=== PATIENT | female | born 1960 | race Caucasian/White ===

== ENCOUNTER 2019-06-26 16:22 | Inpatient (IN) | payer OTHER ==
[~2019-06-26] VITALS: Ht 160 cm; Wt 102.5 kg
[2019-06-26 16:29] VITALS: BP 138/79
[2019-06-26] MEDS ORDERED: TUMS SMOOTHIES300 MG PO (16:35)
[2019-06-26] MEDS ORDERED: PROBIOTIC1 EAC7 PO (16:35)
[2019-06-26] MEDS ORDERED: FOLIC ACID1 MG PO ×2 (16:35→21:18)
[2019-06-26] MEDS ORDERED: MELATONIN3 M1 PO (16:36)
[2019-06-26] MEDS ORDERED: KEPPRA XR500 MG PO (16:36)
[2019-06-26] MEDS ORDERED: MIRALAX119 GM PO (16:36)
[2019-06-26] MEDS ORDERED: ISO D3 2,000 U1 EACH PO (16:37)
[2019-06-26] MEDS ORDERED: TRAZODONE HCL100 MG PO (16:37)
[2019-06-26] MEDS ORDERED: SERTRALINE HCL100 MG PO (16:37)
[2019-06-26 16:56] LABS: URINE BILIRUBIN NEGATIVE (Negative); URINE BLOOD TRACE (Negative); URINE CLARITY CLEAR; URINE COLOR YELLOW; URINE GLUCOSE-RANDOM* NEGATIVE (Negative); URINE KETONES NEGATIVE (Negative); URINE LEUKOCYTES-REFLEX NEGATIVE (Negative); URINE NITRITE-REFLEX NEGATIVE (Negative); URINE PROTEIN (DIPSTICK) 2+ (Negative); URINE SPECIFIC GRAVITY >= 1.030 (1.005-1.035)
[2019-06-26 17:01] LABS: SQUAMOUS >10 Many /LPF (0-3); URINE RBC None Seen /HPF (0-2); URINE WBC-REFLEX 0-5 Rare /HPF (0-5)
[2019-06-26 17:02] LABS: BACTERIA-REFLEX None Seen /HPF (None Seen); CRYSTALS None Seen /LPF (None Seen); HYALINE CASTS 0-3 Few /LPF (None Seen)
[2019-06-26 17:47] LABS: CALCIUM 8.4 mg/dL (8.5-10.1); CREATININE 0.8 mg/dL (0.6-1.0); POTASSIUM 4.7 mmol/L (3.5-5.1)
[2019-06-26 17:53] LABS: ALBUMIN 3.5 g/dL (3.4-5.0); TOTAL PROTEIN 6.8 g/dL (6.4-8.2)
[2019-06-26 18:00] LABS: ABSOLUTE NEUTROPHILS 3.5 thou/uL (1.4-8.2); BASOPHILS 1.2 % (0.0-2.0); EOSINOPHILS 2.3 % (0.0-3.0); HEMATOCRIT 39.8 % (37.0-47.0); HEMOGLOBIN 13.3 gm/dL (12.0-15.0); LYMPHOCYTES 23.5 % (24.0-44.0); MCH 30.6 pg (26.0-34.0); MCHC 33.3 g/dL (28.0-37.0); MCV 91.9 fL (80.0-100.0); MONOCYTES 9.7 % (1.0-8.0); PLATELET COUNT 184 thou/uL (150-400); POLYS 63.3 % (36.0-66.0); RBC 4.33 mil/uL (4.20-5.00); WBC 5.6 thou/uL (4.0-11.0)
[2019-06-26 18:24] LABS: TOTAL BILIRUBIN 0.4 mg/dL (<0.1-1.0)
--- NOTE | 2019-06-26 19:24 | NUR ---
Pt reports she wants these 4 numbers in case her phone dies: Atiya: [phone] Landry: [phone] Beba: [phone] Kay: [phone]
[2019-06-26 19:31] VITALS: BP 99/56
[2019-06-26 19:43] VITALS: BP 94/64
[2019-06-26 20:15] VITALS: BP 108/76
[2019-06-26] MEDS ORDERED: VITAMIN E1000 UNIT PO (21:09)
[2019-06-26] MEDS ORDERED: VIMPAT200 MG PO (21:11)
[2019-06-26] MEDS ORDERED: IBU800 MG PO (21:16)
[2019-06-26] MEDS ORDERED: MELATONIN3 M2 PO (21:21)
[2019-06-26] MEDS ORDERED: PROTONIX40 M2 PO (21:26)
[2019-06-27 00:45] VITALS: BP 105/75
[2019-06-27 04:27] LABS: HEMATOCRIT 37.9 % (37.0-47.0); HEMOGLOBIN 12.5 gm/dL (12.0-15.0); MCH 30.5 pg (26.0-34.0); MCHC 32.9 g/dL (28.0-37.0); MCV 92.8 fL (80.0-100.0); RBC 4.08 mil/uL (4.20-5.00); RDW 13.9 % (10.5-14.5)
[2019-06-27 04:44] LABS: CALCIUM 7.4 mg/dL (8.5-10.1); CREATININE 0.9 mg/dL (0.6-1.0); POTASSIUM 3.9 mmol/L (3.5-5.1)
[2019-06-27 04:45] VITALS: BP 114/81
[2019-06-27 07:20] VITALS: BP 94/44
--- NOTE | 2019-06-27 09:07 | EKG ---
[facility] [address] [place] [address] ELECTROCARDIOGRAM REPORT Name: ANGELA SIMON Room #: 211-P ADM IN M.R.#: [id number] Admission: 06/26/19 Attend Phys: Dianne Ferguson Discharge: Date of : 64 Report #: [id number] THIS REPORT FOR: cc: Nola Frank MD, Ghazal A. MD Lundgren, Craig H. MD [facility] ~ THIS REPORT FOR: //name// [facility] ED Test Date: 2019-06-26 Test Time: 17:00:02 Pat Name: ANGELA SIMON Department: Room: [facility] Gender: F Methods And Procedures Analyst: ELBA : 1960 Requested By: Damion Mckeon Order Number: [id number] MD: Paul Sam Measurements Intervals [place] Rate: 161 P: NM: QRS: 74 QRSD: 88 T: 38 QT: 308 QTc: 504 Interpretive Statements Atrial fibrillation Borderline prolonged QT interval No previous ECG available for comparison Electronically Signed On 06-27-2019 9:05:12 CDT by Paul Sam [email or web address] <ELECTRONICALLY SIGNED> By: Paul Sam MD, FAC 06/27/19 0905 1700 99 Paul Sam MD, [facility] /EPI
[2019-06-27 10:54] VITALS: BP 104/65
[2019-06-27 11:10] LABS: CHOLESTEROL 97 mg/dL (<200); HDL CHOLESTEROL 40 mg/dL (>40); LDL CHOLESTEROL 48 mg/dL (<100); TC:HDL 2.4 Ratio (Not establshd); TRIGLYCERIDE 48 mg/dL (<150); VLDL 10 mg/dL (<40)
--- NOTE | 2019-06-27 12:07 | 2DMMODE ---
[facility] [place] [address] 2 D/M-MODE ECHOCARDIOGRAM Name: ANGELA SIMON Room #: 211-P ADM IN M.R.#: [id number] Admission: 06/26/19 Attend Phys: Dianne Ferguson Discharge: Date of : 64 Report #: [id number] THIS REPORT FOR: cc: Nola Frank MD, Ghazal A. MD Park, Jin S. MD ~ APPROVED REPORT Study performed: 06/27/2019 10:22:26 EXAM: Comprehensive 2D, Doppler, and color-flow Echocardiogram Patient Location: Bedside Room #: 211 Status: routine BSA: 2.01 HR: 110 bpm BP: 94/44 mmHg Rhythm: Atrial Fibrillation Other Information Study Quality: Fair Indications Atrial Fibrillation 2D Dimensions RVDd: 38.42 mm IVSd: 8.62 (7-11mm) LVOT Diam: 18.52 (18-24mm) LVDd: 53.57 mm PWd: 8.94 (7-11mm) Ascending Ao: 25.12 (22-36mm) LVDs: 45.72 (25-40mm) Aortic Root: 25.46 mm IVC: 25.00 mm Volumes Left Atrial Volume (Systole) Single Plane 4CH: 41.12 mL Single Plane 2CH: 51.70 mL LA ESV Index: 26.00 mL/m2 Aortic Valve AoV Peak Jeromy.: 1.29 m/s AO Peak Gr.: 6.68 mmHg LVOT Max P.69 mmHg LVOT Max V: 0.65 m/s TEODORO Vmax: 1.35 cm2 [facility] [address] [place] [address] 2 D/M-MODE ECHOCARDIOGRAM Name: ANGELA SIMON Room #: 211-P [facility] IN [facility]#: [id number] Admission: 06/26/19 Attend Phys: Dianne Peña Discharge: Date of : 64 Report #: [id number] Pulmonary Valve PV Peak Jeromy.: 0.78 m/s PV Peak Gr.: 2.44 mmHg Tricuspid Valve TR Peak Jeromy.: 2.43 m/s TR Peak Gr.: 23.56 mmHg PA Pressure: 39.00 mmHg Left Ventricle Left ventricle is at the upper limits of normal. There is global hypokinesis of the left ventricle. There is normal left ventricular wall thickness. Left ventricular ejection fraction is moderate to severely decreased. LVEF is 30-35%. This study is not technically sufficient to allow evaluation of the LV diastolic function due to atrial fibrillation. Right Ventricle Right ventricle is not well visualized. Atria Left atrium is at the upper limits of normal. Right atrium is dilated. Aortic Valve The aortic valve is not well visualized. No aortic regurgitation is present. There is no aortic valvular stenosis. Mitral Valve The mitral valve is normal in structure. Mild mitral regurgitation. No evidence of mitral valve stenosis. Tricuspid Valve The tricuspid valve is normal in structure. There is mild to moderate tricuspid regurgitation. Estimated PAP 39 mmHg. There is mild pulmonary hypertension. Pulmonic Valve The pulmonary valve is normal in structure. There is no pulmonic valvular regurgitation. Great Vessels The aortic root is normal in size. The inferior vena cava is dilated with no inspiratory collapse. Pericardium There is no pericardial effusion. [facility] [address] [place] [address] 2 D/M-MODE ECHOCARDIOGRAM Name: ANGELA SIMON Room #: 211-P [facility] IN .R.#: [id number] Admission: 06/26/19 Attend Phys: Dianne Peña Discharge: Date of : 64 Report #: [id number] <Conclusion> Technically difficult study Left ventricle is at the upper limits of normal. There is normal left ventricular wall thickness. Left ventricular ejection fraction is moderate to severely decreased. LVEF is 30-35%. Right ventricle is not well visualized. Left atrium is at the upper limits of normal. Mild mitral regurgitation. There is mild to moderate tricuspid regurgitation. Estimated PAP 39 mmHg. <ELECTRONICALLY SIGNED> By: Ignacio Oliva MD 06/27/195 04 04 Ignacio Oliva MD /INF
--- NOTE | 2019-06-27 15:32 | NUR ---
Case opened to follow for dc planning. Pt is a&ox3 and able to answer basic questions about herself. She has a hx of Borderline Intellectual Function, Epilepsy,and Depression/Anxiety for which she is disabled. The pt lives in a group residential home and works at the [employer] 4 days week (prior to the Covid stay at home order). She is indep with gait and requires supervision for her adl's. The [facility] manages her medications and meals and f/u appts. Atiya is the engineering group manager and her primary contact [phone]. Atiya indicates that she will be checking in daily and transporting the pt home at [place]. She is not available on Sunday but can have another staff person available is dc ready then. She will need a chart copy sent with the pt along with dc instructions. Any new scripts will need to be called /or faxed to [facility]: [phone] fax [phone]. Atyia reports that the pt got AD/DPOA paperwork from her pcp but they have not completed it. Her next of kin is her brother Jarad Rubio and Atiya has been updated him regularly. Her pcp is Dr. Landry at [facility] in [place], [place] Dr. De Anda sees her for doreen. The pt is currently being treated for acute pancreatitis and afib. She is on a cardizem gtt today and will likely be here a couple of days. Will ask for therapy evals. No dme or HH history. No cm interventions indicated at this time. Nursing updated. Will follow along.
[2019-06-27 15:36] VITALS: BP 119/82
[2019-06-27 19:37] VITALS: BP 121/74
[2019-06-28 04:31] VITALS: BP 118/69
[2019-06-28 05:28] LABS: ALBUMIN 2.9 g/dL (3.4-5.0); CALCIUM 7.2 mg/dL (8.5-10.1); CREATININE 0.6 mg/dL (0.6-1.0); POTASSIUM 3.3 mmol/L (3.5-5.1); TOTAL BILIRUBIN 0.5 mg/dL (<0.1-1.0); TOTAL PROTEIN 6.1 g/dL (6.4-8.2)
[2019-06-28 07:00] VITALS: BP 115/65
--- NOTE | 2019-06-28 08:16 | NUR ---
ASSUME CARE 1900. PT/VITALS STABLE. ANXIETY NOTED AND PT HAD EPISODES OF TEARFULLNESS. INTERMITTENT HEAD ACHE AND ABDO PAIN. AFIB WITH RATE CONTROLLED. CARDIZEM DRIP TO TITRATE WITH HR LESS THAN 100. ASSESSMETN CHARTED. PROGRESSING MODERATELY TO POC. PLAN IS CONTINUE TO MONITOR DYSRHYTHMIA AND CONSULT PSYCH. CONTINUE TREATMENT FOR SEIZURES. WILL CONTINUE TO MONITOR AND FOLLOW WITH POC
[2019-06-28 10:30] VITALS: BP 111/67
--- NOTE | 2019-06-28 10:54 | NUR ---
DR. BRIONES REFERRAL FOR SUPPORT TO PATIENT. tHIS CHAPKORYN INCREASED COMFORT LEVEL OF PATIENT THROUGH LISTENING AND LIFE REVIEW. DETAILS OF VISIT TO BE SENT TO OUTSIDE OF EMR.
[2019-06-28 16:00] VITALS: BP 122/92
--- NOTE | 2019-06-28 16:14 | NUR ---
ASSESSMENT CHARTED. PT ALERT AND ORIENTED. VSS. RECEIVED PRN PAIN MED FOR [place] AND ABD PAIN WITH PARTIAL RELIEF. TOLERATED FULL LIQUID DIET. HAD LARGE BM THIS SHIFT. FALL PRECAUTION IN PLACE. WILL CONTINUE TO MONITOR.
[2019-06-28 19:01] VITALS: BP 115/77
[2019-06-29 04:21] LABS: BASOPHILS 0.6 % (0.0-2.0); EOSINOPHILS 1.7 % (0.0-3.0); HEMATOCRIT 37.6 % (37.0-47.0); HEMOGLOBIN 12.5 gm/dL (12.0-15.0); LYMPHOCYTES 11.8 % (24.0-44.0); MCH 30.7 pg (26.0-34.0); MCHC 33.2 g/dL (28.0-37.0); MCV 92.5 fL (80.0-100.0); MONOCYTES 7.2 % (1.0-8.0); PLATELET COUNT 167 thou/uL (150-400); POLYS 78.7 % (36.0-66.0); RBC 4.07 mil/uL (4.20-5.00); RDW 13.6 % (10.5-14.5); WBC 5.1 thou/uL (4.0-11.0)
[2019-06-29 04:33] LABS: CALCIUM 7.8 mg/dL (8.5-10.1); CREATININE 0.9 mg/dL (0.6-1.0); MAGNESIUM 1.7 mg/dL (1.8-2.4); PHOSPHORUS 2.4 mg/dL (2.5-4.9); TOTAL BILIRUBIN 0.5 mg/dL (<0.1-1.0); TOTAL PROTEIN 6.4 g/dL (6.4-8.2)
[2019-06-29 05:04] VITALS: BP 138/67
[2019-06-29 07:00] VITALS: BP 130/62
--- NOTE | 2019-06-29 07:24 | NUR ---
ASSUMED PT CARE AT 1900, PT ALERT AND ORIENTEDX2, SR ON THE MONITOR, VSS, C/O HEADACHE, PAIN MEDICATION GIVEN, NO FURTHER COMPLAINS, LAYING IN BD, NO DISTRESS NOTED
[2019-06-29 11:20] VITALS: BP 128/57
[2019-06-29 15:10] VITALS: BP 133/83
--- NOTE | 2019-06-29 16:49 | NUR ---
ASSESSMENT CHARTED. PT ALERT AND ORIENTED. VSS. HAD 3 LARGE BM'S THIS SHIFT. NEW ORDERS NOTED. DIET ADVANCED. SR ON TELE. WILL CONTINUE TO MONITOR.
[2019-06-29 20:30] VITALS: BP 139/71
[2019-06-30 04:45] VITALS: BP 148/92
[2019-06-30 08:00] VITALS: BP 124/63
--- NOTE | 2019-06-30 08:14 | NUR ---
pt resting quietly most of the evening in bed, no c/o pain, vss, untill this am pt's hr up to 150's pt states she didn't feel any different, dr notified and order received to restart cardizem gtt, report given to next shift to con't with ppoc.
[2019-06-30 08:50] LABS: BASOPHILS 0.7 % (0.0-2.0); EOSINOPHILS 2.2 % (0.0-3.0); HEMATOCRIT 44.8 % (37.0-47.0); LYMPHOCYTES 12.5 % (24.0-44.0); MCH 30.9 pg (26.0-34.0); MCHC 33.9 g/dL (28.0-37.0); MCV 90.9 fL (80.0-100.0); MONOCYTES 8.5 % (1.0-8.0); PLATELET COUNT 206 thou/uL (150-400); POLYS 76.1 % (36.0-66.0); RBC 4.92 mil/uL (4.20-5.00); RDW 13.5 % (10.5-14.5); WBC 6.6 thou/uL (4.0-11.0)
[2019-06-30 09:27] LABS: ALBUMIN 3.9 g/dL (3.4-5.0); ANION GAP 7 mmol/L (7-16); BUN 7 mg/dL (7-18); CALCIUM 8.8 mg/dL (8.5-10.1); CHLORIDE 100 mmol/L (98-107); CO2 30 mmol/L (21-32); CREATININE 0.9 mg/dL (0.6-1.0); GLUCOSE 111 mg/dL (74-106); LIPASE 78 U/L (73-393); MAGNESIUM 2.2 mg/dL (1.8-2.4); POTASSIUM 3.7 mmol/L (3.5-5.1); SGOT 32 U/L (15-37); SGPT 64 U/L (30-65); SODIUM 137 mmol/L (136-145); TOTAL BILIRUBIN 0.7 mg/dL (<0.1-1.0); TOTAL PROTEIN 8.2 g/dL (6.4-8.2); TROPONIN-I <0.06 ng/mL (<0.06)
[2019-06-30 09:32] LABS: HEMOGLOBIN 15.2 gm/dL (12.0-15.0)
[2019-06-30 12:00] VITALS: BP 93/67
[2019-06-30 16:00] VITALS: BP 104/77
[2019-06-30 16:18] LABS: HEMATOCRIT 43.1 % (37.0-47.0); HEMOGLOBIN 14.6 gm/dL (12.0-15.0)
--- NOTE | 2019-06-30 16:31 | NUR ---
ASSUMED CARE 0700, ALERTX4, CONSIDERED LEGALLY BLIND PER THE PATIENT, PT DENIES SOB, PT DENIES PAIN, HEADACHE PAIN MANAGED WITH TYLENOL. PT UP STAND BY TO COMMODE, NO BM NOTED AT THIS TIME. NOTIFIED PT'S CAREGIVER THAT HGB NOW WNL. PT SCHEDULED TO HAVE STRESS TEST IN MORNING. PT TO HAVE OUTPATIENT EGD/COLONOSCOPY/EUS WITH GI. AFIB ON TELE WITH DILT DRIP. SEIZURE PRECATIONS IN PLACE. CALLS FOR ASSISTANCE. FALL PRECAUTIONS IN PLACE.
[2019-06-30 20:15] VITALS: BP 118/67
[2019-07-01 00:30] VITALS: BP 106/64
--- NOTE | 2019-07-01 03:59 | NUR ---
UP IN CHAIR UNTIL 22OO LAST NOC. ASSISTED TO BED AND SLEPT MOST OF SHIFT. ASSISTED UP TO COMODE NEEDED. TURNS SELF IN BED. TELEMETRY SHOWS AFIB AND PATIENT REMAINS ON CARDIZEM GTT. WORKING ON GOALS AND PLAN OF CARE FOR NOC. PROGRESSING SLOWLY TOWARDS DISCHARGE GOALS. NPO FOR AM STRESS TEST. CONTINUE TO ASSES CLOSELY.
[2019-07-01 04:03] VITALS: BP 113/74
--- NOTE | 2019-07-01 04:07 | NUR ---
1930 IV LFA INFILTRATED, WARM AND RED TO TOUCH. IV REMOVED AND WARM PACK APPLIED ALTERNATING WITH ICE PACK FOR COMFORT.
[2019-07-01 05:23] LABS: CALCIUM 8.9 mg/dL (8.5-10.1); CREATININE 0.8 mg/dL (0.6-1.0); PHOSPHORUS 3.4 mg/dL (2.5-4.9); POTASSIUM 3.6 mmol/L (3.5-5.1)
[2019-07-01 06:10] LABS: ABSOLUTE NEUTROPHILS 4.9 thou/uL (1.4-8.2); BASOPHILS 0.5 % (0.0-2.0); EOSINOPHILS 2.2 % (0.0-3.0); HEMATOCRIT 43.1 % (37.0-47.0); HEMOGLOBIN 14.7 gm/dL (12.0-15.0); LYMPHOCYTES 16.5 % (24.0-44.0); MCH 30.9 pg (26.0-34.0); MCHC 34.1 g/dL (28.0-37.0); MCV 90.8 fL (80.0-100.0); MONOCYTES 9.5 % (1.0-8.0); PLATELET COUNT 199 thou/uL (150-400); POLYS 71.3 % (36.0-66.0); RBC 4.75 mil/uL (4.20-5.00); RDW 13.8 % (10.5-14.5); WBC 6.8 thou/uL (4.0-11.0)
[2019-07-01 07:00] VITALS: BP 116/67
[2019-07-01 15:00] VITALS: BP 114/53
--- NOTE | 2019-07-01 15:07 | NUR ---
tenative plan to dc to [facility] in am. Updated [facility] care coordinator Atiya.
--- NOTE | 2019-07-01 18:51 | NUR ---
ASSUMED CARE 0700. ALERT X4, DENIES CHEST PAIN, DENIES SOB, CARDIAC STRESS TEST COMPLETED. CARDIAC DRIP STOPPED. NSR ON TELE. PROGRESSING TOWARDS GOALS. CALL LIGHT AND PERSONAL ITEMS IN REACH. PT CALLS FOR ASSISTANCE.
[2019-07-01 20:15] VITALS: BP 114/55
[2019-07-02 04:45] VITALS: BP 122/68
--- NOTE | 2019-07-02 07:48 | NUR ---
PT TRANSFERRING TO BEDSIDE COMMODE WITH STANDBY ASSIST AND IS TOLERATING FAIR. DENIES PAIN. RESTING COMFORTABLY. NO NEEDS VOICED. CALL LIGHT WITHIN REACH. FREQUENT OBSERVATION.
[2019-07-02 08:00] VITALS: BP 128/65
[2019-07-02] MEDS ORDERED: XARELTO20 MG PO (08:44)
[2019-07-02] MEDS ORDERED: ATENOLOL 50MG T50 MG PO (08:44)
[2019-07-02 12:00] VITALS: BP 126/77
[2019-07-02 13:52] VITALS: BP 126/77
--- NOTE | 2019-07-02 15:03 | NUR ---
ASSESSMENT DOCUMENTED, ALERT AND ORIENTED X4. VSS AND SR-SB ON THE MONITOR. CALLED [facility] TO GIVE REPORT, [facility] WILL CALL BACK AND COPY OF PATIENT CHART SENT WITH PATIENT, AND PATIENT DISCHARGED TO THE HALF-WAY.
--- NOTE | 2019-07-02 16:39 | NUR ---
PT DISCHARGING TODAY BACK TO [facility] FAXED DC ORDERS/SUMMARY SPOKE WITH [facility] HERNANDEZ AT [facility] SHE RECEIVED ORDERS.
== END 2019-07-02 16:01 | disposition home or self-care (01) | DRG 438 ==
LOC: ER 16:22 → 2N 19:19 → EROBS 19:19 → 2N 19:43
PROVIDERS: Internal Medicine; Nurse Practitioner Family; Physician Assistant; ADMIT Hospitalist
DX: K85.90 Acute pancreatitis without necrosis or infection, unspecified (principal); R65.11 Systemic inflammatory response syndrome (SIRS) of non-infectious origin with acute organ dysfunction; I48.19 Other persistent atrial fibrillation; I42.9 Cardiomyopathy, unspecified; Z68.41 Body mass index [BMI] 40.0-44.9, adult; G40.909 Epilepsy, unspecified, not intractable, without status epilepticus; R13.10 Dysphagia, unspecified; I48.91 Unspecified atrial fibrillation; G47.00 Insomnia, unspecified; F32.9 Major depressive disorder, single episode, unspecified; F70 Mild intellectual disabilities; I08.1 Rheumatic disorders of both mitral and tricuspid valves; K59.09 Other constipation; R63.4 Abnormal weight loss; F41.9 Anxiety disorder, unspecified; K21.9 Gastro-esophageal reflux disease without esophagitis; E66.9 Obesity, unspecified; Z79.899 Other long term (current) drug therapy; Z90.49 Acquired absence of other specified parts of digestive tract; Z88.0 Allergy status to penicillin; Z91.048 Other nonmedicinal substance allergy status; Z86.010 Personal history of colon polyps; Z82.49 Family history of ischemic heart disease and other diseases of the circulatory system; Z80.0 Family history of malignant neoplasm of digestive organs
CPT/HCPCS: 10081

== ENCOUNTER → 2019-07-08 | Outpatient (CLI) | payer OTHER ==
[~2019-07-08] MED LIST: ATENOLOL 50MG T50 MG PO; FOLIC ACID1 MG PO; IBU800 MG PO; ISO D3 2,000 U1 EACH PO; KEPPRA XR500 MG PO; MELATONIN3 M1 PO; MELATONIN3 M2 PO; MIRALAX119 GM PO; PROBIOTIC1 EAC7 PO; PROTONIX40 M2 PO; SERTRALINE HCL100 MG PO; TRAZODONE HCL100 MG PO; TUMS SMOOTHIES300 MG PO; VIMPAT200 MG PO; VITAMIN E1000 UNIT PO; XARELTO20 MG PO
== END ==
LOC: SJCVC 09:42
DX: R94.31 Abnormal electrocardiogram [ECG] [EKG] (principal); I48.0 Paroxysmal atrial fibrillation; I48.92 Unspecified atrial flutter; I42.9 Cardiomyopathy, unspecified; Z79.899 Other long term (current) drug therapy

== ENCOUNTER → 2019-07-10 | Outpatient (CLI) | payer OTHER ==
[~2019-07-10] MED LIST changes: +ATIVAN0.5 M1 PO
== END ==
LOC: LAB 09:50
PROVIDERS: ATTEND Internal Medicine Cardiovascular Disease
DX: Z01.812 Encounter for preprocedural laboratory examination (principal)

== ENCOUNTER → 2019-07-14 | Outpatient (CLI) | payer OTHER | END | disposition home or self-care (01) | LOC: CATH 09:02 | DX: I48.3 Typical atrial flutter (principal); I48.91 Unspecified atrial fibrillation; F32.9 Major depressive disorder, single episode, unspecified; F41.9 Anxiety disorder, unspecified; G47.00 Insomnia, unspecified; Z79.899 Other long term (current) drug therapy; Z98.890 Other specified postprocedural states; Z79.01 Long term (current) use of anticoagulants ==

== ENCOUNTER → 2019-10-08 | Outpatient (CLI) | payer OTHER | LOC: SJCVCIMAG 10:32 | PROVIDERS: ATTEND Internal Medicine Cardiovascular Disease | DX: I08.8 Other rheumatic multiple valve diseases (principal); I11.9 Hypertensive heart disease without heart failure; R94.31 Abnormal electrocardiogram [ECG] [EKG]; I42.9 Cardiomyopathy, unspecified; I48.92 Unspecified atrial flutter; Z79.899 Other long term (current) drug therapy ==

== ENCOUNTER → 2019-10-14 | Outpatient (CLI) | payer OTHER | LOC: SJCVC 14:00 | PROVIDERS: ATTEND Internal Medicine Cardiovascular Disease | DX: I48.3 Typical atrial flutter (principal); R00.1 Bradycardia, unspecified; G40.909 Epilepsy, unspecified, not intractable, without status epilepticus; F32.9 Major depressive disorder, single episode, unspecified; I48.91 Unspecified atrial fibrillation; I42.9 Cardiomyopathy, unspecified; Z79.899 Other long term (current) drug therapy ==

== ENCOUNTER → 2020-03-09 | Outpatient (CLI) | payer OTHER | LOC: SJCVC 11:19 | PROVIDERS: ATTEND Internal Medicine Cardiovascular Disease | DX: R00.1 Bradycardia, unspecified (principal); I48.3 Typical atrial flutter; I42.9 Cardiomyopathy, unspecified; G40.909 Epilepsy, unspecified, not intractable, without status epilepticus; F79 Unspecified intellectual disabilities; Z79.899 Other long term (current) drug therapy; Z88.0 Allergy status to penicillin; Z88.8 Allergy status to other drugs, medicaments and biological substances ==

== ENCOUNTER → 2020-04-15 | Outpatient (CLI) | payer OTHER | LOC: SJCVC 14:05 | PROVIDERS: ATTEND Internal Medicine Cardiovascular Disease | DX: R00.1 Bradycardia, unspecified (principal); I48.3 Typical atrial flutter; I42.9 Cardiomyopathy, unspecified; R60.9 Edema, unspecified; R06.00 Dyspnea, unspecified; K21.9 Gastro-esophageal reflux disease without esophagitis; G40.909 Epilepsy, unspecified, not intractable, without status epilepticus; I48.91 Unspecified atrial fibrillation; R60.0 Localized edema; I25.5 Ischemic cardiomyopathy; F32.9 Major depressive disorder, single episode, unspecified; Z79.899 Other long term (current) drug therapy; Z88.0 Allergy status to penicillin; Z88.8 Allergy status to other drugs, medicaments and biological substances ==

== ENCOUNTER → 2020-10-22 | Outpatient (CLI) | payer OTHER | LOC: SJCVCIMAG 07:31 | PROVIDERS: ATTEND Internal Medicine Cardiovascular Disease | DX: R00.1 Bradycardia, unspecified (principal); I42.9 Cardiomyopathy, unspecified; I48.92 Unspecified atrial flutter; I10 Essential (primary) hypertension; R60.9 Edema, unspecified; I48.91 Unspecified atrial fibrillation; G40.909 Epilepsy, unspecified, not intractable, without status epilepticus; K21.9 Gastro-esophageal reflux disease without esophagitis; F32.9 Major depressive disorder, single episode, unspecified; R00.0 Tachycardia, unspecified; Z88.0 Allergy status to penicillin; Z88.8 Allergy status to other drugs, medicaments and biological substances; Z79.899 Other long term (current) drug therapy ==

== ENCOUNTER → 2021-03-17 | Outpatient (CLI) | payer OTHER | LOC: SJCVC 15:00 | PROVIDERS: ATTEND Internal Medicine Cardiovascular Disease | DX: R00.1 Bradycardia, unspecified (principal); I48.92 Unspecified atrial flutter; I42.9 Cardiomyopathy, unspecified; I10 Essential (primary) hypertension; K21.9 Gastro-esophageal reflux disease without esophagitis; Z88.0 Allergy status to penicillin; Z88.8 Allergy status to other drugs, medicaments and biological substances; Z98.890 Other specified postprocedural states; Z79.899 Other long term (current) drug therapy ==